=== PATIENT | female | born 1985 | race Caucasian/White ===

== ENCOUNTER 2018-08-24 18:14 | Emergency (ER) | payer OTHER ==
[~2018-08-24] VITALS: Ht 167.6 cm; Wt 76.4 kg
[2018-08-24 18:53] LABS: URINE PREG TEST POSITIVE (NEGATIVE)
[2018-08-24 21:18] LABS: HEMATOCRIT 43.3 % (36.0-47.0); HEMOGLOBIN 14.2 g/dl (12.0-15.5); MEAN CORPUSCULAR HEMOGLOBIN 29.6 pg (27.0-33.0); MEAN CORPUSCULAR HGB CONC 32.8 g/dl (32.0-36.5); MEAN CORPUSCULAR VOLUME 90.2 fl (80.0-96.0); PLATELET COUNT, AUTOMATED 302 10^3/uL (150-450); WHITE BLOOD COUNT 12.1 10^3/uL (4.0-10.0)
[2018-08-24] MEDS ORDERED: AMOX500C PO (21:27)
[2018-08-24 21:39] VITALS: BP 116/67
--- NOTE | 2018-08-24 22:46 | REPVR ---
EXAM: US First Trimester, Transabdominal EXAM DATE/TIME: 08/24/2018 9:10 PM CLINICAL HISTORY: 33 years old, female; Pain; complicated by abdominal or pelvic pain; Lower; First trimester; Gestational age or lmp: 4w4d; TECHNIQUE: Real-time transabdominal obstetrical ultrasound of the maternal pelvis and a first trimester , less than 14 weeks 0 days, with image documentation. COMPARISON: No relevant prior studies available. FINDINGS: Abdomen: There is only a very small amount of urine in the urinary bladder therefore the urinary bladder cannot be assessed. Right adnexa: The right ovary measures 3.6 CM in length by 2.9 CM in thickness. There is a clear cyst of the right ovary which measures 1.6 CM. There is vascular flow of the right ovary with no evidence of torsion. Left adnexa: The left ovary measures 2.6 CM in length by 2.3 CM in thickness. There is an echogenic focus within the left ovary. There is vascular flow identified in the left ovary. There is vascular flow of the left ovary. Endometrium: There is decidual reaction within the endometrium. Within the upper endometrium there is a small round fluid filled structure measuring 4 mm and probably a very early gestational sac. If this is a gestational sac there is no pole or yolk sac yet identified. It would be important to have a followup ultrasound in 10-14 days to ensure the development of a pole and cardiac activity. Blighted ovum or a pseudo-sac could give an identical appearance. A pseudo-sac is seen with microscopic ectopic therefore this cannot be excluded either. Intraperitoneal: The uterus measures 8.7 CM in length by 4 CM in AP dimension by 5.6 and a transverse dimension there is no evidence of free fluid within the pelvis. IMPRESSION: Small intrauterine fluid filled structure probably a early gestational sac less than 5 weeks gestation. No pole, yolk sac or cardiac activity identified. Recommend followup ultrasound in 10-14 days to document development of a pole and to exclude blighted ovum or pseudo-gestational sac. See above. Electronically signed by: Adam Burnham On 08/24/2018 22:45:23 PM
== END 2018-08-24 21:40 | disposition home or self-care (01) ==
LOC: M ED 18:14
DX: O23.41 Unspecified infection of urinary tract in pregnancy, first trimester (principal); Z3A.01 Less than 8 weeks gestation of pregnancy

== ENCOUNTER 2018-09-06 11:58 | Emergency (ER) | payer OTHER ==
[~2018-09-06] VITALS: Ht 167.6 cm; Wt 76.5 kg
[~2018-09-06 11:58] MED LIST: AMOX500C PO
[2018-09-06 13:02] LABS: BASO % 0.4 % (0.0-1.0); EOS # 0.2 10^3/uL (0.0-0.50); EOS % 1.9 % (0.0-3.0); HEMATOCRIT 43.8 % (36.0-47.0); HEMOGLOBIN 14.6 g/dl (12.0-15.5); LYMPH # 2.6 10^3/uL (1.5-4.5); LYMPH % 27.2 % (24.0-44.0); MEAN CORPUSCULAR HEMOGLOBIN 29.7 pg (27.0-33.0); MEAN CORPUSCULAR HGB CONC 33.3 g/dl (32.0-36.5); MONO # 0.6 10^3/uL (0.0-0.8); MONO % 6.8 % (0.0-5.0); NEUTROPHILS % 63.4 % (36.0-66.0); PLATELET COUNT, AUTOMATED 302 10^3/uL (150-450); RED BLOOD COUNT 4.92 10^6/uL (4.00-5.40); WHITE BLOOD COUNT 9.5 10^3/uL (4.0-10.0)
[2018-09-06 13:04] VITALS: BP 106/64
[2018-09-06 13:50] LABS: BLOOD UREA NITROGEN 7 MG/DL (7-18); CALCIUM LEVEL 8.7 MG/DL (8.5-10.1); CARBON DIOXIDE LEVEL 24 MEQ/L (21-32); CHLORIDE LEVEL 107 MEQ/L (98-107); CREATININE FOR GFR 0.58 MG/DL (0.55-1.30); GLOMERULAR FILTRATION RATE > 60.0 (>60); GLUCOSE, FASTING 89 MG/DL (70-100); HCG, SERUM QUANTITATIVE 26001 MIU/ML; POTASSIUM SERUM 4.5 MEQ/L (3.5-5.1); SODIUM LEVEL 139 MEQ/L (136-145)
[2018-09-06] MEDS ORDERED: MACR100C43 PO (14:27)
--- NOTE | 2018-09-06 14:39 | REP ---
FIRST TRIMESTER ULTRASOUND: Real-time sonographic evaluation of the gravid uterus is performed. There is a single living intrauterine gestation. Estimated gestational age is 6 weeks 3 days based on a crown-rump length of 6 mm. EDC 04/29/2019. heart rate 126 beats per minute. There is subchorionic hemorrhage measuring 2.8 x 0.8 x 1.5 cm. A cystic structure of the right ovary measures about 1.6 cm in diameter probably representing a corpus luteum. No torsion is seen of either ovary. Electronically Signed by Stew Vasquez MD 09/06/2018 06:18 P
== END 2018-09-06 14:33 | disposition home or self-care (01) ==
LOC: M ED 11:58
DX: O23.10 Infections of bladder in pregnancy, unspecified trimester (principal); O20.8 Other hemorrhage in early pregnancy; Z87.59 Personal history of other complications of pregnancy, childbirth and the puerperium; Z3A.01 Less than 8 weeks gestation of pregnancy

== ENCOUNTER → 2018-12-29 | Outpatient (CLI) | payer OTHER ==
[~2018-12-29] MED LIST changes: +MACR100C43 PO
--- NOTE | 2018-12-29 13:03 | REP ---
Obstetric ultrasound for evaluation of cervical length and heart beat: There is a single intrauterine gestation in a vertex presentation. heart rate is 144 beats per minute. The cervical length measured trans vaginally is 4.4 cm. There is no funneling of the internal loss. Gestational age based on the first ultrasound is 22 weeks 5 days/ROQUE 04/29/2090. Gestational age by LMP is 23 weeks 2 days/ROQUE 04/25/2090. No further evaluation is requested or performed at this time. Electronically Signed by Stew Edwards MD 12/29/2018 12:55 P
== END ==
LOC: M RAD 12:12
PROVIDERS: ATTEND Obstetrics & Gynecology
DX: Z34.82 Encounter for supervision of other normal pregnancy, second trimester (principal)

== ENCOUNTER 2019-02-03 17:07 | Outpatient (CLI) | payer OTHER ==
[~2019-02-03] VITALS: Ht 167.6 cm; Wt 76.9 kg
[2019-02-03 17:26] VITALS: BP 122/66
[2019-02-03] MEDS ORDERED: LACTATED RINGER'S 1000 ML IV STA (18:01)
[2019-02-03 18:10] VITALS: BP 119/56
[2019-02-03] MEDS ORDERED: BETAMETHASONE SOLUSPAN 6MG/ML INJ 5ML (J0702) IM SCH (18:15)
[2019-02-03 18:29] LABS: BASO # 0.1 10^3/uL (0.0-0.2); BASO % 0.5 % (0.0-1.0); EOS # 0.5 10^3/uL (0.0-0.50); EOS % 3.1 % (0.0-3.0); HEMATOCRIT 37.6 % (36.0-47.0); HEMOGLOBIN 12.8 g/dl (12.0-15.5); LYMPH # 2.7 10^3/uL (1.5-4.5); LYMPH % 18.8 % (24.0-44.0); MEAN CORPUSCULAR HEMOGLOBIN 30.3 pg (27.0-33.0); MEAN CORPUSCULAR VOLUME 88.9 fl (80.0-96.0); MONO # 1.1 10^3/uL (0.0-0.8); MONO % 7.8 % (0.0-5.0); NEUTROPHILS # 9.9 10^3/uL (1.8-7.7); NEUTROPHILS % 67.7 % (36.0-66.0); PLATELET COUNT, AUTOMATED 260 10^3/uL (150-450); RED BLOOD COUNT 4.23 10^6/uL (4.00-5.40); WHITE BLOOD COUNT 14.6 10^3/uL (4.0-10.0)
[2019-02-03 18:35] LABS: APPEARANCE, URINE HAZY (CLEAR); BACTERIA, URINE AUTO 1+ (NEGATIVE); BILIRUBIN, URINE AUTO NEGATIVE (NEGATIVE); BLOOD, URINE BLOOD 1+ (NEGATIVE); COLOR, URINE STRAW (YELLOW); GLUCOSE, URINE (UA) AUTO NEGATIVE (NEGATIVE); KETONE, URINE AUTO NEGATIVE (NEGATIVE); LEUKOCYTE ESTERASE, URINE AUTO TRACE (NEGATIVE); NITRITE, URINE AUTO NEGATIVE (NEGATIVE); PROTEIN, URINE AUTO NEGATIVE (NEGATIVE); RBC, URINE AUTO 9 /HPF (0-3); SPECIFIC GRAVITY URINE AUTO 1.003 (1.002-1.035); SQUAMOUS EPITHELIAL CELL UR AU 3 /HPF (0-6); UROBILINOGEN, URINE AUTO 0.2 mg/dL (0.0-2.0); WBC, URINE AUTO 5 /HPF (0-3)
--- NOTE | 2019-02-03 18:57 | IPNPDOC ---
Obstetrical Progress Note Date of Service Feb 03, 2019 Subjective HPI: 33yo at 27+6wks presents to LND triage with c/o SROM at 1700 this PM. Pt is currently receiving weekly Nelli d/t history of 24 week demise in 2013 s/p PPROM. Subjective: Pt reports lower abdominal cramping and low back pain x2 days; today she went for walk with similar symptoms when she felt a gush that soaked her pant and underwear. Pt denies further fluid leaking afterwards. Pt denies feeling movement, as well, since this even occurred. Pt denies vaginal bleeding or Contractions. Pt denies dysuria; she also denies abnormal vaginal discharge. Objective VSS, afebrile Negative Speculum exam (no pooling, cervix visually closed) SVE: C/L/H and posterior Negative Ferning Negative Nitrazine Negative ЮЛИЯ Stat bedside US: ARUNA WNL (14.2), Cervical length 3.2cm Active movement noted during US; placenta anterior FHR 130s-140s, moderate variability with + accels; reactive and reassuring for gestation No Contractions present Labs WNL for ; UC pending Assessment and Plan Status: Reassuring Group B Streptococcus: Unknown Additional Comments A: Reassuring status Pt not ruptured, fluid status WNL VSS, afebrile, pt stable P: Consulted with Dr. Martin - recommends pt to receive betamethasone based on previous history. 1st betamethasone received prior to discharge; return o/a [id number] for second dose and repeat NST UC still pending; will notify and treat if results + for UTI 500mL LR Bolus prior to discharge for hydration Discharge home with strict PTL/ROM precautions MARTA WOODARD CNM Feb 03, 2019 18:36
[2019-02-03 19:03] VITALS: BP 103/61
--- NOTE | 2019-02-03 19:20 | REPVR ---
EXAM: US , Limited EXAM DATE/TIME: 02/03/2019 6:29 PM CLINICAL HISTORY: 33 years old, female; Lmp or gestational age (in weeks): 28 weeks 3 d; Labor and delivery abnormalities; Pre-term labor; Without delivery; ; Additional info: Aruna, trnasvaginal cervical length. R/O pprom TECHNIQUE: Imaging protocol: Real-time ultrasound of the maternal uterus with image documentation. Exam focused on the clinical indication. COMPARISON: Obs. Limited, ARUNA US 12/29/2018 12:32 PM FINDINGS: GESTATION: Gestation: Single intrauterine gestation. Heart rate: heart rate 144 beats per minute. Amniotic fluid: ARUNA 14.1, normal for gestational age. BIOMETRY: Estimated gestational age: Gestational age is 28 weeks 3 days based on LMP of 07/19/2018. MATERNAL: Cervix: Cervical length 3.2 cm. No bulging membranes or funneling. IMPRESSION: Normal amniotic fluid volume. Electronically signed by: Faraz Encinas On 02/03/2019 19:19:51 PM
[2019-02-03] MEDS ORDERED: PRENTAB9 PO (19:27)
== END 2019-02-03 19:08 | disposition home or self-care (01) ==
LOC: M LDO 17:07
PROVIDERS: ATTEND Registered Nurse Maternal Newborn
DX: O26.893 Other specified pregnancy related conditions, third trimester (principal); M54.5 Low back pain; R10.9 Unspecified abdominal pain; Z3A.27 27 weeks gestation of pregnancy
CPT/HCPCS: 76815; 76817; 81001; 85025; 86780; 86850; 86900; 86901; 87086; 96360; 96372; G0378; G0463; J0702

== ENCOUNTER 2019-02-04 18:27 | Outpatient (CLI) | payer OTHER ==
[~2019-02-04] VITALS: Ht 167.6 cm; Wt 78.5 kg
[~2019-02-04 18:27] MED LIST changes: +PRENTAB9 PO
[2019-02-04 18:35] VITALS: BP 97/60
[2019-02-04] MEDS ORDERED: BETAMETHASONE SOLUSPAN 6MG/ML INJ 5ML (J0702) IM ONE (18:45)
[2019-02-04 18:51] VITALS: BP 103/61
== END 2019-02-04 19:33 | disposition home or self-care (01) ==
LOC: M LDO 18:27
PROVIDERS: ATTEND Obstetrics & Gynecology
DX: O26.893 Other specified pregnancy related conditions, third trimester (principal); M54.5 Low back pain; R10.9 Unspecified abdominal pain; Z3A.28 28 weeks gestation of pregnancy
CPT/HCPCS: G0378; J0702

== ENCOUNTER 2019-03-03 14:41 | Outpatient (CLI) | payer OTHER ==
[~2019-03-03] VITALS: Ht 167.6 cm; Wt 75.2 kg
[2019-03-03 14:56] VITALS: BP 108/62
[2019-03-03 15:26] VITALS: BP 99/56
[2019-03-03 16:29] VITALS: BP 102/64
--- NOTE | 2019-03-03 18:43 | HPE ---
DATE OF ADMISSION: 03/03/2019 A 34-year-old 4, para 3, T1, P2, A0, L2, G4. Last menstrual period (LMP) is 07/23/2018, estimated date of confinement (EDC) 04/29/2019, at 32 weeks of gestation, was complaining of two days of uterine contractions, white vaginal discharge and decreased movement times 48 hours. Her past history: In November 2005 at 40 weeks, spontaneous vaginal delivery, male, 2980 grams. In March 2008 at 40 weeks, spontaneous vaginal delivery, 2960 grams, female. In July 2016 at 24 weeks, premature rupture of membranes, had a , but it four weeks after the premature rupture of membranes (PROM). LABORATORY DATA: O+, HIV negative, hepatitis negative, RPR negative, rubella immune. Varicella immune. Urine negative. Gonorrhea and chlamydia were positive, test of cure was negative. One-hour glucose was 110. Urine is 10/10, pH 6, +1 leukocytes, trace of blood. Temperature is 98.4, respirations 18, pulse 76, blood pressure 102/64. On examination, she appears distressed with an irritable uterus. Category 1 strip with no contractions, moderate variability, baseline was normal, accelerations were noted. No decelerations were noted. On sterile speculum examination, cervix was closed, some whitish discharge. No odor. fibronectin (fFN) was performed and was negative. Ferning was negative. Nitrazine was negative. Yeast and bacterial vaginosis was negative. Transvaginal ultrasound after discussion about the methodology of doing it, under sterile conditions, the cervical length was evaluated. It was 3.0 with no funneling and vertex was well-applied to the cervix. Our plan of management was to discharge her home. Precautions were given regarding uterine irritability, increasing fluids, changing position. She has an appointment on 03/09/2019 to maintain that and to come back if there is any change in her symptoms or signs. In summary, we have a 32-week who had had a delivery at 24 weeks with premature rupture of membranes (PROM) with uterine irritability, discharged undelivered. All questions were answered. We had a 40-minute discussion.
== END 2019-03-03 16:50 | disposition home or self-care (01) ==
LOC: M LDO 14:41
PROVIDERS: ATTEND Obstetrics & Gynecology
DX: O36.8130 Decreased fetal movements, third trimester, not applicable or unspecified (principal); Z3A.32 32 weeks gestation of pregnancy; O62.0 Primary inadequate contractions; Z87.51 Personal history of pre-term labor
CPT/HCPCS: 59025; 76815; 82731; G0378; G0463

== ENCOUNTER 2019-03-16 10:21 | Outpatient (CLI) | payer OTHER ==
[~2019-03-16] VITALS: Ht 167.6 cm; Wt 78.4 kg
[2019-03-16 10:43] VITALS: BP 109/66
[2019-03-16] MEDS ORDERED: MAPA500T2 PO (10:48)
[2019-03-16] MEDS ORDERED: LR 1,000 ML IV ONE (11:30)
[2019-03-16] MEDS ORDERED: LR 1,000 ML IV SCH (11:30)
[2019-03-16 12:02] LABS: AMORPHOUS SEDIMENT SMALL (NEGATIVE); APPEARANCE, URINE CLOUDY (CLEAR); BACTERIA, URINE AUTO 3+ (NEGATIVE); BILIRUBIN, URINE AUTO NEGATIVE (NEGATIVE); BLOOD, URINE BLOOD 2+ (NEGATIVE); COLOR, URINE YELLOW (YELLOW); GLUCOSE, URINE (UA) AUTO NEGATIVE (NEGATIVE); KETONE, URINE AUTO NEGATIVE (NEGATIVE); LEUKOCYTE ESTERASE, URINE AUTO 3+ (NEGATIVE); MUCUS, URINE SMALL (NEGATIVE); NITRITE, URINE AUTO NEGATIVE (NEGATIVE); PROTEIN, URINE AUTO NEGATIVE (NEGATIVE); RBC, URINE AUTO 13 /HPF (0-3); SPECIFIC GRAVITY URINE AUTO 1.005 (1.002-1.035); SQUAMOUS EPITHELIAL CELL UR AU 11 /HPF (0-6); UROBILINOGEN, URINE AUTO 0.2 mg/dL (0.0-2.0); WBC, URINE AUTO 15 /HPF (0-3)
[2019-03-16 12:10] VITALS: BP 106/64
[2019-03-16] MEDS ORDERED: PIPERACILLIN/TAZOBACTAM SOD 3.375 GM in D5W MINI-BAG PLUS 50 ML IV ONE (13:00)
--- NOTE | 2019-03-16 13:04 | HPE ---
DATE OF ADMISSION: 03/16/2019 33-year-old 4, para 3, last menstrual period 07/23/2018, estimated date of confinement (EDC) 04/29/2019 at 33 and 4 weeks of gestation who was seen in the clinic for her progesterone because of a previous delivery at 24 weeks. She said she is maria r for the last 2 weeks and there is increasing discharge. Risk factors is she had a LEEP cone of her cervix and she had a delivery and 24 weeks for pre PROM, baby 4 days after delivery. PAST HISTORY: June 2005, 40 weeks, 2980 grams male. No complications. March 2008, 40 weeks, 2960 grams, female. No complications. December 2012, 24 weeks, PE PROM, delivered, 4 days after delivery. Temperature 98.3, pulse 79, respirations 18, blood pressure 109/66. Urine is 10/15, pH is 5+, 2 leukocyte esterase, 250 blood, plus protein, 3+ bacteria. Urine has a foul odor. LABORATORIES: O+, HIV negative, hep negative, RPR negative, rubella immune. Varicella immune. Urine was negative. Gonorrhea and Chlamydia were initially positive, test of cures were negative. 1-hour glucose was 110. PHYSICAL EXAMINATION: On examination, has a category 1 strip with accelerations, baseline variability is normal. On pelvic examination, closed cervix, vertex was high not dilated. No discharge at all noted. Our plan is to hydrate her, IV antibiotics, home antibiotics. Followup with discharge instructions.
== END 2019-03-16 13:30 | disposition home or self-care (01) ==
LOC: M LDO 10:21
PROVIDERS: ATTEND Obstetrics & Gynecology
DX: Z36.89 Encounter for other specified antenatal screening (principal); Z3A.33 33 weeks gestation of pregnancy
CPT/HCPCS: 59025; 81001; 87086; 96361; 96365; G0378; G0463; J2543

== ENCOUNTER 2019-03-23 16:38 | Inpatient (IN) | payer OTHER ==
[~2019-03-23] VITALS: Ht 167.6 cm; Wt 76.9 kg
[~2019-03-23 16:38] MED LIST changes: +MAPA500T2 PO
[2019-03-23 16:56] VITALS: BP 123/76
[2019-03-23] MEDS ORDERED: CEPH25SS PO (17:14)
[2019-03-23] MEDS ORDERED: LACTATED RINGER'S 1000 ML IV STA (18:17)
[2019-03-23] MEDS ORDERED: LR 1,000 ML IV SCH (18:17)
[2019-03-23] MEDS ORDERED: OXYTOCIN DRIP 30 UNITS in IV 1 EA IV SCH ×2 (18:30→22:47)
[2019-03-23 18:46] VITALS: BP 129/72
--- NOTE | 2019-03-23 18:48 | HPEPDOC ---
Obstetrical History & Physical General Date of Admission Mar 23, 2019 at 17:56 Primary Care Physician: Renetta Navarro MD History of Present Illness OB Problem List: H/o LEECosta 2014 Late entry to care - NO at 17 wks History of PPROM at 24 with induction due to intraamniotic infection, with neona tyshawn 4 days later, on weekly 17OHP, BMTZ complete at 28 weeks +Chlamydia , retest negative Deja is a 34y/o @ 34+5 wks by LMP c/w 6 wk US (ROQUE [id number]) presenting to triage with pelvic pain, pelvic pressure and watery, foul smelling vaginal discharge x4 days. Patient notes that last night she had intermittent contractions every 25 minutes. This has continued today and seems to be worse. She also notes intense pelvic pressure and cramping like pain. She denies vaginal bleeding. She denies movement, but has not felt her baby move this , which was attributed to anterior placenta. Chief Complaint: Contractions, pre-term, LOF, pre-term Information Provided By: Patient Age: 34 : 4 Term: 2 Pre-term: 1 Abortions: 0 Livin Care Care: Good Care Dating Final EDC: Apr 29, 2019 Final EDC by: LMP, 3rd trimester (US) LMP: Jul 23, 2018 1st Trimester Date: Sep 06, 2018 Estimated Date of Confinement: Apr 29, 2019 Antepartum Course Diagnos(e)s OB Problem List: H/o NORBERTO 2014 Late entry to [facility] - NO at 17 wks History of PPROM at 24 with induction due to intraamniotic infection, with 4 days later, on weekly 17OHP, BMTZ complete at 28 weeks +Chlamydia , retest negative Height (inches): 66 Pre- weight (lbs.): 145 Admission Weight (lbs.): 169 Change in Weight (lbs.): 24 Past Medical History Past Obstetrical History #1: Past Obstetrical History: Multigravida Date of Delivery: Jun 16, 2005 Gestation: 49 Type of Delivery: Spontaneous Vaginal Del. Sex of : Male Weight of Infant (grams): 2980 Complications: No Past Obstetrical History #2: Past Obstetrical History: Multigravida Date of Delivery: Mar 16, 2008 Gestation: 40 Type of Delivery: Spontaneous Vaginal Del. Sex of : Female Weight of Infant (grams): 2980 Complications: No Past Obstetrical History #3: Past Obstetrical History: Multigravida Date of Delivery: Dec 14, 2012 Gestation: 24 Type of Delivery: Spontaneous Vaginal Del. 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 Denies HTN/Asthma/Seizures/DM. Denies history of VTE. Surgical History: Other Family History Significant Family History: No pertinent family hx Social History Marital Status: Family situation: Spouse/partner home * Smoker: current smoker Alcohol: Denies Drugs: denies Imunizations Tdap status: current Influenza Status: needs Allergies Coded Allergies: nickel (Verified Allergy, Mild, ITCHING, SWELLING, REDNESS, 03/16/19) Medications Scheduled Cephalexin Monohydrate (Cephalexin) 250 Mg/5 Ml Susp.recon, 500 MG PO QID No.137/Iron/Folic Acd ( Vitamin Tablet) 1 Each Tablet, 1 TAB PO DAILY Scheduled PRN Acetaminophen (Mapap) 500 Mg Tablet, 350 MG PO PRN PRN for PAIN OR FEVER Physical Examination Physical Examination GENERAL: Alert and oriented times three. BREAST: . ABDOMEN: Soft, gravid, non distended. Fundal tenderness on exam. FETUS: Is vertex (VTX) by sterile vaginal examination (SVE), fetus is vertex (VTX) by Frederick. HEART RATE: Regular rate and rhythm. LUNGS: Clear to auscultation (CTA). +Cough EXTREMITIES: No edema. Perineum: Red, sore area of erythema surrounding the labia majora and rectum, non pruritic. SSE: Difficult with visualization of cervix due to vaginal tissue. Large amount of yellow-green liquid with foul smell in vault, increased with valsalva. Alkaline with nitrizine paper. Ferning present on microscopy. Vital Signs/I&O Vital Signs Date Time Temp Pulse Resp B/P (MAP) Pulse Ox O2 Delivery O2 Flow Rate FiO2 03/23/19 16:56 99.0 108 20 123/76 (92) Laboratory Data 24H LABS Laboratory Tests 2 03/23/19 18:16: Serology Scanned Report Hepatitis B Testing Pertinent Laboratoy Data Blood Type: O+ RBC Antibody Screen: Negative HIV: Negative Hepatitis B: Negative Hepatitis C: Unknown Rapid Plasma Reagin: Nonreactive Rubella: Immune Varicella: Immune Chlamydia/Gonorrhea: Positive Group B Streptococcus: Unknown Glucose Tolerance Test: 110 Other Ultrasounds Limited Bedside Ultrasound at presentation: Cephalic, MVP 2.0cm. No other fluid pockets appreciated. Steroid Therapy Steroid Therapy: Yes Date #1: Feb 03, 2019 Date #2: Feb 04, 2019 Vaginal Examination Dilation: 2cm Effacement: 50% Station: -3 Cervical Consistency: Soft Cervical Position: Posterior Presentation: Cephalic presentation Position: Vertex (occiput) Assessment Variability: Moderate Accelerations: Positive Decelerations: Variable Tocometer Contractions: No Assessment/Plan Assessment 34y/o @ 34+5 wks admitted for PPROM x4 days. Suspected intramnionic infection based on purulent amniotic fluid and uterine tenderness. 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 Diet: Clear liquid. Ampicillin 2g q6 hours and Gentamicin 5mg/kg q 24 hours for intraamniotic infection. Group B Streptococcus (GBS): Unknown. No swab performed due to plan to treat for intraamniotic infection. Labs and intravenous (IV) per unit protocol. Will add CMP, Type and Cross. Counseled on Pitocin and induction of labor (IOL). Lactated Ringers (LR): Bolus 1000 mL, then at 125 mL/hr. Anticipate vaginal delivery. C-S as appropriate. Labor and Delivery Counseling Discussed procedures on labor and delivery to include monitoring baby with external monitors, with possibility for internal monitoring if indicated. Giving medications to cause uterine contractions and cause labor. IV antibiotics for treatment of infection. Risks include infection, bleeding, to include need for blood transfusion with subsequent risks of blood borne illness such as HIV/Hepatitis or transfusion reaction. Risks of tears to the vaginal area which will be repaired with sutures that will dissolve on their own. Vacuum or forceps may be used to assist in delivery if indicated. Other risks include injury to baby, need for emergency , or need for additional procedures as indicated. Renetta Navarro MD Mar 23, 2019 18:48
[2019-03-23 19:39] LABS: BASO # 0.1 10^3/uL (0.0-0.2); BASO % 0.6 % (0.0-1.0); EOS # 0.2 10^3/uL (0.0-0.5); EOS % 1.1 % (0.0-3.0); HEMATOCRIT 36.7 % (36.0-47.0); HEMOGLOBIN 12.5 g/dl (12.0-15.5); LYMPH # 1.8 10^3/uL (1.5-5.0); LYMPH % 10.4 % (24.0-44.0); MEAN CORPUSCULAR HGB CONC 34.1 g/dl (32.0-36.5); MEAN CORPUSCULAR VOLUME 88.2 fl (80.0-96.0); MONO # 1.2 10^3/uL (0.0-0.8); MONO % 7.1 % (0.0-5.0); NEUTROPHILS # 13.4 10^3/uL (1.5-8.5); NEUTROPHILS % 77.2 % (36.0-66.0); PLATELET COUNT, AUTOMATED 209 10^3/uL (150-450); RED BLOOD COUNT 4.16 10^6/uL (4.00-5.40); WHITE BLOOD COUNT 17.3 10^3/uL (4.0-10.0)
[2019-03-23 19:55] VITALS: BP 107/58
[2019-03-23 19:55] LABS: ALBUMIN 2.7 GM/DL (3.2-5.2); ALT/SGPT 10 U/L (12-78); BILIRUBIN,TOTAL 0.2 MG/DL (0.2-1.0); BLOOD UREA NITROGEN 3 MG/DL (7-18); CALCIUM LEVEL 8.9 MG/DL (8.5-10.1); CARBON DIOXIDE LEVEL 22 MEQ/L (21-32); CHLORIDE LEVEL 106 MEQ/L (98-107); CREATININE FOR GFR 0.46 MG/DL (0.55-1.30); GLOMERULAR FILTRATION RATE > 60.0 (>60); GLUCOSE, FASTING 80 MG/DL (70-100); POTASSIUM SERUM 3.8 MEQ/L (3.5-5.1); SODIUM LEVEL 137 MEQ/L (136-145); TOTAL PROTEIN 7.3 GM/DL (6.4-8.2)
[2019-03-23] MEDS: AMPICILLIN SOD 2 GM in D5W MINI-BAG PLUS 100 ML IV SCH (19:56)
[2019-03-23] MEDS: LR 1,000 ML IV SCH (20:58)
[2019-03-23] MEDS ORDERED: CLINDAMYCIN 900 MG in IV 1 EA IV SCH (21:00)
[2019-03-23] MEDS: GENTAMICIN IV SCH (21:10)
[2019-03-23] MEDS: D5W IV SCH (21:10)
[2019-03-23] MEDS ORDERED: ONDANSETRON 4MG/2ML VIAL (J2405) As Ordered ONE (21:16)
[2019-03-23] MEDS ORDERED: MORPHINE PRES-FREE INJ 10 MG/10 ML VIAL (J2274) As Ordered ONE (21:16)
[2019-03-23] MEDS ORDERED: OXYTOCIN INJ 10 UNITS/ML VIAL (J2590) As Ordered ONE (21:16)
[2019-03-23] MEDS ORDERED: KETOROLAC 60 MG/2 ML VIAL (J1885) As Ordered ONE (21:16)
[2019-03-23] MEDS ORDERED: BICITRA 30ML SOLN UDC As Ordered ONE (21:17)
[2019-03-23] MEDS ORDERED: BICITRA 30ML SOLN UDC PO ONE ×2 (21:30)
[2019-03-23] MEDS ORDERED: fentaNYL 100 MCG/2 ML INJECTION (J3010) As Ordered ONE (21:37)
[2019-03-23] MEDS ORDERED: MIDAZOLAM INJ 2 MG/2 ML VIAL (J2250) As Ordered ONE (21:38)
[2019-03-23] MEDS ORDERED: SUCCINYLCHOLINE 100 MG/5 ML SYRINGE (J0330) As Ordered ONE (21:41)
[2019-03-23] MEDS: CLINDAMYCIN 900 MG in IV 1 EA IV SCH (22:00)
[2019-03-23] MEDS ORDERED: propofoL 200 MG/20 ML VIAL As Ordered ONE ×2 (22:06→22:22)
[2019-03-23] MEDS ORDERED: LIDOCAINE 2% INJ 100 MG/5 ML SDV (FOR ANES.) As Ordered ONE (22:06)
[2019-03-23] MEDS ORDERED: SUGAMMADEX SODIUM 500 MG/5 ML VIAL (BRIDION) As Ordered ONE (22:07)
[2019-03-23] MEDS ORDERED: ROCURONIUM BROMIDE 50 MG/5 ML VIAL As Ordered ONE (22:07)
[2019-03-23 22:18] LABS: CORD GAS ABE V -4.9; CORD GAS HCO3 V 22.1 MEQ/L; CORD GAS O2 SAT V 62.8 %; CORD GAS PCO2 V 48.2 mmHg; CORD GAS PH V 7.279 UNITS; CORD GAS PO2 V 28.4 mmHg; CORD GAS SBC V 19.7 MEQ/L; CORD GAS TCO2 V 23.6 MEQ/L
[2019-03-23] MEDS ORDERED: NALBUPHINE HCL 10 MG/ML AMP (J2300) IV PRN (22:45)
[2019-03-23] MEDS ORDERED: NS 1,000 ML IV SCH (22:45)
[2019-03-23] MEDS ORDERED: diphenhydrAMINE INJ 50MG/ML VIAL (J1200) IV PRN (22:45)
[2019-03-23] MEDS ORDERED: NALOXONE INJ 0.4 MG/1 ML VIAL (J2310) IV PRN (22:45)
[2019-03-23] MEDS ORDERED: ONDANSETRON 4MG/2ML VIAL (J2405) IV PRN ×3 (22:45→23:15)
[2019-03-23] MEDS ORDERED: MORPHINE 1MG/ML IN 0.9% NACL 100ML IV BAG IV PRN (22:45)
[2019-03-23] MEDS ORDERED: EPIDURAL/PCA KEYS XX PRN (22:45)
[2019-03-23] MEDS ORDERED: OXYTOCIN 30 UNITS IN 0.9% NaCl 500ML IV BAG (J2590) As Ordered ONE (22:58)
[2019-03-23] MEDS ORDERED: RHOGAM 300 MCG (1500 IU) INJ (J2790) IM SCH (23:00)
[2019-03-23] MEDS ORDERED: ACETAMINOPHEN 500 MG TAB PO PRN (23:00)
[2019-03-23] MEDS ORDERED: MEASLES,MUMPS,RUBELLA VACCINE INJ (MMR-II) (90707) SC SCH (23:00)
[2019-03-23] MEDS ORDERED: ACETAMINOPHEN 1000MG 100ML IV BTL (OFIRMEV) (J0131 PER 10MG) As Ordered ONE (23:03)
[2019-03-23] MEDS ORDERED: oxyCODONE 5MG TAB PO PRN (23:15)
[2019-03-23] MEDS ORDERED: fentaNYL 100 MCG/2 ML INJECTION (J3010) IV PRN (23:15)
[2019-03-23] MEDS ORDERED: MORPHINE 10 MG/ML 1ML VIAL (J2270) IV PRN (23:15)
--- NOTE | 2019-03-23 23:21 | IPNPDOC ---
Text Note Date of Service The patient was seen on 03/23/19. NOTE Decision for section. Note delayed due to patient care. OB Problem List: H/o LEEP 2014 Late entry to care - NOB at 17 wks History of PPROM at 24 with induction due to intraamniotic infection, with 4 days later, on weekly 17OHP, BMTZ complete at 28 weeks +Chlamydia , retest negative Deja is a 34y/o @ 34+5 wks by LMP c/w 6 wk US (ROQUE [id number]) who was admitted earlier this evening for PPROM x 4 days and concern for intraamniotic infection in the setting of WBC 17.3 with left shift, green/yellow amniotic fluid per vagina and uterine tenderness. She was admitted with plan for induction of labor and antibiotic treatment with Ampicillin and Gentamicin for presumed intraamniotic infection. NST upon presentation initially notable for Baseline 160s, moderate variability +accelerations, no decelerations with no contractions on Tocometry around 1800. However, over the next two hours of observation, patient had spontaneous decelerations of both variable and late morphology, though they were not associated with contractions. Patient was given IV fluid bolus and repositioned with return of moderate variability and accelerations at 1930. However, over the next hour, patient continued to have periods of minimal variability, variable decelerations and prolonged decelerations to the 100s. At that time, discussed with patient the findings of spontaneous decelerations preventing Pitocin augmentation. Given that patient remains 2cm and is not in labor, I recommend delivery via primary section. I discussed with patient the risks and benefits of delivery. The benefits include expeditious delivery of her baby before any more compromise occurs. The alternative would be to try to proceed with vaginal delivery, which I do not recommend at this time. Risks of the procedure include infection, bleeding with need for blood transfusion or hysterectomy to stop bleeding, injury to surrounding organs. Risks to baby is <1% chance of scalpel injury at time of uterine incision. Risks of anesthesia include DVT/PE, Stroke, SC or even . For future pregnancies, risk of uterine rupture, although if incision is low on the uterus this is a low risk and she is a candidate for . She could form scar tissue from surgery making future surgeries more difficult. After counseling compl ete, patient verbalizes the well informed decision to proceed with primary section. Consent forms were signed. Plan: To OR for PTLCS SCDs for DVT prohylaxis Will add Clindamycin for surgical prophylaxis Bicitra Pediatrics team notified in anticipation of delivery of infant VS,Fishbone, I+O VS, Fishbone, I+O Laboratory Tests 03/23/19 19:24 Red Blood Count 4.16, Mean Corpuscular Volume 88.2, Mean Corpuscular Hemoglobin 30.0, Mean Corpuscular Hemoglobin Concent 34.1, Red Cell Distribution Width 14.0, Neutrophils (%) (Auto) 77.2 H, Lymphocytes (%) (Auto) 10.4 L, Monocytes (%) (Auto) 7.1 H, Eosinophils (%) (Auto) 1.1, Basophils (%) (Auto) 0.6, Neutrophils # (Auto) 13.4 H, Lymphocytes # (Auto) 1.8, Monocytes # (Auto) 1.2 H, Eosinophils # (Auto) 0.2, Basophils # (Auto) 0.1, Calcium Level 8.9, Aspartate Amino Transf (AST/SGOT) 13, Alanine Aminotransferase (ALT/SGPT) 10 L, Alkaline Phosphatase 197 H, Total Bilirubin 0.2, Total Protein 7.3, Albumin 2.7 L Vital Signs Date Time Temp Pulse Resp B/P (MAP) Pulse Ox O2 Delivery O2 Flow Rate FiO2 03/23/19 18:46 99.7 86 18 129/72 (91) Renetta Navarro MD Mar 23, 2019 23:21
[2019-03-23 23:55] VITALS: BP 99/56
--- NOTE | 2019-03-24 | POST-OPPD ---
Postoperative Procedure Note PREOPERATIVE DIAGNOSIS: 1. SIUP at 34+5 wks 2. Premature Rupture of Membranes 3. Suspected intramniotic infection 4. Non augmentable heart tracing remote from delivery 5. Thin meconium stained fluid POSTOPERATIVE DIAGNOSIS: 1. Premature Rupture of Membranes 2. Suspected intramniotic infection 3. Non augmentable heart tracing remote from delivery FINDINGS: Viable female infant, 1604g with Apgars 1/3/8, purulent staining of en dometrium, otherwise normal uterus, tubes and ovaries. PROCEDURE: Primary Low Transverse Section SURGEON: Renetta Navarro MD DEHYDRATING PRESS OPERATOR: Dr. Austin ANESTHESIA: General SPECIMENS: Cord gases, Placenta ESTIMATED BLOOD LOSS: 600cc UOP: 100cc IVF: 1500cc LR DRAINS: Chaparro Catheter COMPLICATIONS: None POSTOPERATIVE CONDITION: Stable to recovery INDICATION: Ms. Schmitz is a 34y/o @ 34+5 wks who presented with report of leakage of green/yellow foul smelling vaginal discharge x4 days, pelvic pain and tenderness. Exam was notable for +pooled fluid, +ferning and Total ARUNA 2.0cm consistent with premature rupture of membranes. She was not having subjective of objective contractions. She was noted to be 2cm dilated and 50% effaced on exam. The patient had received a course of antepartum steroids on and 04 Feb 2019. Her WBC on admission was 17.3 and patient was found to have uterine tenderness. Thus, decision was made to treat the patient for presumed intramniotic infection. However, upon placement on continuous monitoring, patient continued to have persistent spontaneous decelerations and persistent CatII tracing remote from delivery, which prevented Pitocin augmentation. Therefore, a delivery was recommended. PROCEDURE: The risks, benefits and alternatives of the procedure were discussed with the patient and informed consent was obtained. The patient received Ampicillin/Gentamicin and Clindamycin for preoperative prophylaxis. The patient was taken to the operating room with an IV running. Spinal anesthesia was attempted, but failed to achieve a surgical block and plan was made for General Anesthesia. She was prepped and draped in the usual sterile fashion in a left tilt position. A chaparro catheter was placed under sterile conditions. Once anesthesia was obtained, a Pfannenstiel incision was made and carried sharply to the level of the fascia, which was incised on either side of midline. The fascia was then extended bluntly. The peritoneum was then entered bluntly in the midline and stretched laterally. The bladder blade was placed. A low transverse incision was made in the lower uterine segment, well above the identified bladder. The uterus was then entered bluntly and stretched cephalad and caudally bluntly. Hands were placed to elevate the vertex, which delivered easily with gentle fundal pressure. The shoulders and body followed easily. Nuchal cord x1 was reduced manually. The cord was cut x2 and handed to the awaiting Pediatrics team. Pitocin was started per protocol. Cord blood was then obtained for gases. The placenta was expressed spontaneously and the uterus was externalized and wiped clear of all clots and debris. The hysterotomy was repaired with a two layered closure. The first layer was p erformed in a running locked manner using 0-Vicryl. A second imbricating layer with 0-Monocryl was then performed. Additional oozing near the center of the incision was identified and a single figure of eight of 0-Vicyrl gained excellent hemotasis. The posterior cul de sac was irrigated and suctioned, and the uterus was replaced inside the abdomen. The gutters were cleared of clots and debris. The hysterotomy was reinspected off tension and noted to be hemostatic. The muscle bellies and fascia were examined and noted to be hemostatic. The fascia was then closed with 0-Vicryl in a running manner. The subcutaneous space was irrigated and three interrupted sutures of 2-0 Vicryl were used to reapproximate the subcutaneous tissue. Finally, the skin was c losed with 4-0 Monocryl. Steris and a pressure dressing were applied. Bimanual exam at the end of the procedure notable for minimal clots, fundus firm at U-2. The counts were correct x2. Infant to NICU and mother stable to recovery at the end of the procedure. Dr. Austin was present and scrubbed for the entire procedure. His assistance with retraction, delivery, knot tying and closure were instrumental to the successful completion of this case. Venous cord gas results: pH 7.279 pCO2 48.2 pO2 28.4 HCO3 22.1 BE -4.9 Renetta Navarro MD Mar 23, 2019 23:58
--- NOTE | 2019-03-24 00:08 | DNPDOC ---
[facility] Delivery Note Delivery Note DATE OF DELIVERY: 23Mar2019 PREDELIVERY DIAGNOSIS: 1. SIUP at 34+5 wks 2. Premature Rupture of Membranes 3. Suspected intramniotic infection 4. Non augmentable heart tracing remote from delivery POST DELIVERY DIAGNOSIS: Delivered. PROCEDURE: section VP RHEUMATOLOGY: Dr. Renetta Navarro MD ANESTHESIA: General ESTIMATED BLOOD LOSS: 600 mL. FINDINGS: 1604g female infant, Score 1/3/8, nuchal cord times 1. DELIVERY SUMMARY: Patient is a 34-year-old 4 now para 2-2-0-3 who was admitted to labor and delivery for premature rupture of membranes. She was delivered by uncomplicated Primary Section for non augmentable heart tracing remote from delivery. See operative report for full details. Venous: pH 7.279 pCO2 48.2 pO2 28.4 HCO3 22.1 BE -4.9 Renetta Navarro MD Mar 24, 2019 00:08
[2019-03-24 00:55] VITALS: BP 96/56
[2019-03-24] MEDS: LR 1,000 ML IV SCH (01:43)
[2019-03-24] MEDS: AMPICILLIN SOD 2 GM in D5W MINI-BAG PLUS 100 ML IV SCH ×4 (01:43→20:20)
[2019-03-24 01:55] VITALS: BP 110/54
[2019-03-24] MEDS: KETOROLAC 30 MG/ML VIAL (J1885) IV SCH ×3 (03:33→15:28)
[2019-03-24] MEDS: CLINDAMYCIN 900 MG in IV 1 EA IV SCH ×3 (05:24→23:15)
[2019-03-24 06:19] LABS: HEMATOCRIT 30.4 % (36.0-47.0); MEAN CORPUSCULAR HEMOGLOBIN 29.7 pg (27.0-33.0); MEAN CORPUSCULAR HGB CONC 33.6 g/dl (32.0-36.5); MEAN CORPUSCULAR VOLUME 88.4 fl (80.0-96.0); PLATELET COUNT, AUTOMATED 204 10^3/uL (150-450); RED BLOOD COUNT 3.44 10^6/uL (4.00-5.40)
[2019-03-24 06:28] LABS: HEMOGLOBIN 10.2 g/dl (12.0-15.5)
--- NOTE | 2019-03-24 08:43 | IPNPDOC ---
Text Note Date of Service The patient was seen on 03/24/19. NOTE Provider Progress Note POD#1 Ms Samira Schmitz is a 34y/o POD#1 s/p uncomplicated PLTCS at 34+5 wks for non augmentable heart tracing remote from delivery in the setting of premature rupture of membranes and suspected intramniotic infection. Surgery was uncomplicated with EBL 600cc. This morning, Samira is doing quite well. Per RN, she has only dosed her Morphine LAST SAWYER twice over night. Patient denies fevers/chills/chest pain/trouble breathing/abdominal pain. She has been up and ambulating without light headedness and had chaparro catheter removed at 0 400; she is awaiting due to void. She denies nausea/vomiting, has eaten crackers. She has been to see baby in NICU. Objective: VS reviewed as below. Normotensive, afebrile, non tachycardic. General: alert and oriented Resp: non labored breathing CV: well perfused Abd: incision with pressure dressing in place with no strike through. Soft, appropriately tender. U-2 Ext: No edema, erythema or calf tenderness HCT 36.7 -> 30.4 WBC 17.3 -> 17.0 UOP: 75ml/kg/hr A/p: 34y/o recovering well POD#1 s/p uncomplicated PTLCS. -Plan to continue Amp/Gent/Clinda for 24 hours after delivery if remaining afebrile -Plan to remove dressing at 24 hours postop -If tolerating breakfast, can switch LAST SAWYER to oral narcotics for breakthrough pain. Currently well controlled with Toradol. -Pumping for in NICU -RH positive, Rubella Immune -Encourage ambulation, hydration, pumping, IS use -Anticipate discharge on POD#2-3 Pilar Navarro MD [employer] Josette ROQUE, I+O VSJosette I+O Laboratory Tests 03/23/19 19:24 Red Blood Count 4.16, Mean Corpuscular Volume 88.2, Mean Corpuscular Hemoglobin 30.0, Mean Corpuscular Hemoglobin Concent 34.1, Red Cell Distribution Width 14.0, Neutrophils (%) (Auto) 77.2 H, Lymphocytes (%) (Auto) 10.4 L, Monocytes (%) (Auto) 7.1 H, Eosinophils (%) (Auto) 1.1, Basophils (%) (Auto) 0.6, Neutrophils # (Auto) 13.4 H, Lymphocytes # (Auto) 1.8, Monocytes # (Auto) 1.2 H, Eosinophils # (Auto) 0.2, Basophils # (Auto) 0.1, Calcium Level 8.9, Aspartate Amino Transf (AST/SGOT) 13, Alanine Aminotransferase (ALT/SGPT) 10 L, Alkaline Phosphatase 197 H, Total Bilirubin 0.2, Total Protein 7.3, Albumin 2.7 L 03/24/19 05:58 Red Blood Count 3.44 L, Mean Corpuscular Volume 88.4, Mean Corpuscular Hemogl obin 29.7, Mean Corpuscular Hemoglobin Concent 33.6, Red Cell Distribution Width 13.8 Vital Signs Date Time Temp Pulse Resp B/P (MAP) Pulse Ox O2 Delivery O2 Flow Rate FiO2 03/24/19 01:55 98.5 74 18 110/54 (72) 95 03/23/19 22:53 2 I&O- Last 24 Hours up to 6 AM 03/24/19 06:00 Intake Total 1725 ml Output Total 600 ml Balance 1125 ml Renetta Navarro MD Mar 24, 2019 08:42
[2019-03-24] MEDS: DOCUSATE SODIUM 100 MG CAP PO SCH ×2 (09:08→20:19)
[2019-03-24] MEDS: PRENATAL VITAMINS CHEWABLE TABLET PO SCH (09:08)
[2019-03-24 10:00] VITALS: BP 88/54
[2019-03-24] MEDS ORDERED: PERCOCET 5MG/325MG TAB PO PRN ×2 (15:00)
[2019-03-24 15:03] VITALS: BP 101/64
[2019-03-24 18:00] VITALS: BP 116/61
[2019-03-24] MEDS: GENTAMICIN IV SCH (22:02)
[2019-03-24] MEDS: D5W IV SCH (22:02)
[2019-03-24 22:18] VITALS: BP 87/53
[2019-03-24] MEDS: IBUPROFEN 800 MG TAB PO SCH (23:39)
[2019-03-25 02:07] VITALS: BP 100/62
[2019-03-25 05:56] VITALS: BP 97/52
--- NOTE | 2019-03-25 06:22 | IPNPDOC ---
Text Note Date of Service The patient was seen on 03/25/19. NOTE Provider Progress Note POD#2 Ms Samira Schmitz is a 34y/o POD#2 s/p uncomplicated PLTCS at 34+5 wks for non augmentable heart tracing remote from delivery in the setting of premature rupture of membranes and suspected intramniotic infection. Surgery was uncomplicated with EBL 600cc. Patient denies fevers/chills/chest pain/trouble breathing/abdominal pain. She has been up and ambulating without light headedness and is voiding without difficulty. She is tolerating regular diet and passing flatus. Intending to pump; does not have breast pump at home. Desires discharge today. Objective: VS reviewed as below. Normotensive, afebrile, non tachycardic. General: alert and oriented Resp: non labored breathing CV: well perfused Abd: Incision clean, dry, intact with steris Soft, appropriately tender. U-2 Ext: No edema, erythema or calf tenderness HCT 36.7 -> 30.4 A/p: 34y/o recovering well POD#2 s/p uncomplicated PTLCS. -s/p 24 hours Amp/Gent/Clinda -Pain well controlled with Ibuprofen and Percocet -Pumping for in NICU - will give breast pump prescription. Patient aware loaner pumps available if needed. -RH positive, Rubella Immune -Encourage ambulation, hydration, pumping, IS use -Medications in [place] [facility]: patient's spouse to draft roller picker -Patient desiring discharge today; will reassess for discharge this afternoon after meds/breast pump situated VS,Fishbone, I+O VS, Fishbone, I+O Vital Signs Date Time Temp Pulse Resp B/P (MAP) Pulse Ox O2 Delivery O2 Flow Rate FiO2 03/25/19 05:56 97.9 69 18 97/52 (67) 03/24/19 15:03 95 03/23/19 22:53 2 I&O- Last 24 Hours up to 6 AM 03/25/19 06:00 Intake Total 1175 ml Output Total 400 ml Balance 775 ml Renetta Navarro MD Mar 25, 2019 06:22
[2019-03-25] MEDS: IBUPROFEN 800 MG TAB PO SCH (08:00)
[2019-03-25] MEDS ORDERED: INFLUENZA QUADRIVALENT PF VACCINE 0.5ML SYRINGE (90686) IM ONE (09:00)
[2019-03-25] MEDS: PRENATAL VITAMINS CHEWABLE TABLET PO SCH (10:08)
[2019-03-25] MEDS: DOCUSATE SODIUM 100 MG CAP PO SCH (10:09)
--- NOTE | 2019-03-25 14:27 | OBDS ---
[facility] Obstetrical Discharge Sum. Obstetrical Discharge Summary Meat Packer/Provider: Renetta Navarro MD Date: Mar 25, 2019 Time: 14:23 : 4 Term: 2 Pre-term: 2 Abortions: 0 Livin VDRL: Non-Reactive Rh: Positive Rubella: Immune Labor MS Schmitz was admitted at 34+5 wks for premature rupture of membranes and suspected intramniotic infection. She was started on antibiotics. Prior to starting Pitocin, multiple variable and prolonged declerations were noted. Therefore decision was made for delivery. Delivery Uncomplicated PLTCS, EBL 600cc. Viable female infant, 1604g, [id number]. Apagars 1/3/8 Infant Sex: Female Anesthesia: General Anesthesia A/P, Post Course List any complications Admission diagnosis: Premature Rupture of Membranes. Suspect intramniotic infection Discharge diagnosis: Back Live Condition at Discharge: Stable Discharge Instructions:Home Activity: As tolerated. No lifting > 20 lbs. Pelvic Rest. Diet: Regular Medications: Spouse has picked up at [facility] Follow-up: 2 week incision check and 6 week appointment. Other: Return precautions discussed. Renetta Navarro MD Mar 25, 2019 14:27
== END 2019-03-25 15:35 | disposition home or self-care (01) | DRG 771 ==
LOC: M LDO 16:38 → M LDI 17:56 → M OBS 03-24 00:25
PROVIDERS: ADMIT Obstetrics & Gynecology; ATTEND Obstetrics & Gynecology
PROC: 10D00Z1 Extraction of Products of Conception, Low, Open Approach (ICD-10-PCS; principal; 2019-03-23 21:30)
DX: O42.113 Preterm premature rupture of membranes, onset of labor more than 24 hours following rupture, third trimester (principal); O41.1230 Chorioamnionitis, third trimester, not applicable or unspecified; Z37.0 Single live birth; Z3A.34 34 weeks gestation of pregnancy; O76 Abnormality in fetal heart rate and rhythm complicating labor and delivery